=== PATIENT | male | born 1945 | race African-American/Black ===

== ENCOUNTER 2017-12-25 12:54 | Emergency (ER) | payer OTHER ==
[~2017-12-25] VITALS: Ht 177.8 cm; Wt 117.9 kg
[~2017-12-25 12:54] MED LIST: ASPI81CH43 PO; ATOR1TAB PO; CAR3125T PO; CLOP75TA28 PO; DOCU-94 PO; INSU1INJ3 SC; ISOS60TA PO; LEVO100I PO; LOSA100T27 PO; OMEP20TA85 PO
[2017-12-25 13:58] VITALS: BP 148/69
[2017-12-25] MEDS ORDERED: KETOROLAC TROMETH 60MG/2ML VIAL IM ONE (14:15)
== END 2017-12-25 15:15 | disposition home or self-care (01) ==
LOC: ER 12:54
DX: M25.512 Pain in left shoulder (principal); M19.90 Unspecified osteoarthritis, unspecified site; E11.9 Type 2 diabetes mellitus without complications; I10 Essential (primary) hypertension; E07.89 Other specified disorders of thyroid
CPT/HCPCS: 73030; 96372; 99284; J1885

== ENCOUNTER → 2023-01-23 | Outpatient (CLI) | payer OTHER ==
[~2023-01-23] MED LIST changes: +ATOR-47 PO; -ATOR1TAB PO; -LOSA100T27 PO; +LOSA100T58 PO
[2023-01-23 08:50] LABS: Potassium 4.1 mmol/L (3.5-5.1)
[2023-01-23 09:12] LABS: Albumin 3.5 g/dL (3.4-5.0); BUN/Creatinine Ratio 14.3 (10.0-20.0); Bilirubin, Total 0.5 mg/dL (0.2-1.0); Calcium 8.7 mg/dL (8.5-10.1); Total Protein 7.2 g/dL (6.4-8.2)
== END | disposition home or self-care (01) ==
LOC: LAB 06:30
PROVIDERS: ATTEND Internal Medicine Endocrinology, Diabetes & Metabolism
DX: E11.65 Type 2 diabetes mellitus with hyperglycemia (principal); E03.9 Hypothyroidism, unspecified
CPT/HCPCS: 36415; 80053; 80061; 83036; 84439; 84443